=== PATIENT | male | born 1955 | race Caucasian/White ===

== ENCOUNTER 2018-07-25 09:01 | Emergency (ER) | payer BC ==
[2018-07-25] MEDS ORDERED: Sodium Chloride 0.9% 1,000 ML IV ONE (09:10)
[2018-07-25 09:13] VITALS: BP 160/90; PULSE 54
[2018-07-25] MEDS ORDERED: Ketorolac 30 MG/ML SDV IVPUSH ONE (09:22)
--- NOTE | 2018-07-25 09:27 | EDM.PDOC ---
ED HPI GENERAL MEDICAL PROBLEM - General Chief Complaint: Flank Pain Stated Complaint: KIDNEY PAIN Time Seen by Provider: 07/25/18 09:15 Source of Information: Reports: Patient History Limitations: Reports: No Limitations - History of Present Illness INITIAL COMMENTS - FREE TEXT/NARRATIVE: This 62 yo male patient reports to the ED with lower abdominal pain, painful urination and left lower back/flank pain. The patient reports he has had some discomfort with urination over the past month, but got much worse this morning. The patient reports diffuse abdominal throughout the night. The patient states his lower abdominal pain started to get bad this morning at 0600. By 0700, the patient started to have pain in his left lower back. The patient was seen in the [facility] yesterday for a possible rotator cuff injury and started on Prednisone. Onset: Today Duration: Constant, Getting Worse Location: Reports: Abdomen, Back (left flank) Quality: Reports: Ache, Dull Severity: Moderate Improves with: Reports: None Worsens with: Reports: None Context: Reports: Other Treatments [employer]CHNICIAN: Reports: Other Medication(s) (OCT cold medication) Left Flank Pain Score (Numeric/FACES): 9 - Related Data Allergies Allergy/AdvReac Type Severity Reaction Status Date / Time No Known Allergies Allergy Verified 07/25/18 09:11 Home Meds: Home Meds Escitalopram [Lexapro] 20 mg PO DAILY 07/25/18 [History] LORazepam 0.5 mg PO ASDIRECTED PRN 07/25/18 [History] Lisinopril 5 mg PO DAILY 07/25/18 [History] atorvaSTATin Calcium [Atorvastatin Calcium] 80 mg PO DAILY 07/25/18 [History] methylPREDNISolone [Methylprednisolone] 1 dose PO ASDIRECTED 07/25/18 [History] Past Medical History Cardiovascular History: Reports: High Cholesterol, Hypertension Respiratory History: Reports: Asthma Genitourinary History: Reports: Renal Calculus Musculoskeletal History: Reports: Other (See Below) Other Musculoskeletal History: possible left rotator cuff tear Psychiatric History: Reports: Anxiety Social & Family History - Tobacco Use Smoking Status *Q: Current Every Day Smoker Years of Tobacco use: 30 Packs/Tins Daily: 1 - Alcohol Use Days Per Week of Alcohol Use: 3 Number of Drinks Per Day: 10 Total Drinks Per Week: 30 - Recreational Drug Use Recreational Drug Use: No ED ROS GENERAL - Review of Systems Review Of Systems: ROS reveals no pertinent complaints other than HPI. ED EXAM, RENAL/ - Physical Exam Exam: See Below Exam Limited By: No Limitations General Appearance: Alert, WD/WN, Moderate Distress Eye Exam: Bilateral Eye: EOMI, Normal Inspection, PERRL Ears: Normal External Exam, Normal Canal, Hearing Grossly Normal, Normal TMs Nose: Normal Inspection, Normal Mucosa, No Blood Throat/Mouth: Normal Inspection, Normal Lips, Normal Teeth, Normal Gums, Normal Oropharynx, Normal Voice, No Airway Compromise Head: Atraumatic, Normocephalic Neck: Normal Inspection, Supple, Non-Tender, Full Range of Motion Respiratory/Chest: No Respiratory Distress, Lungs Clear, Normal Breath Sounds, No Accessory Muscle Use, Chest Non-Tender Cardiovascular: Normal Peripheral Pulses, Regular Rate, Rhythm, No Edema, No Gallop, No JVD, No Murmur, No Rub GI/Abdominal: Tender (lower abdomen) (Male) Exam: Deferred Rectal (Males) Exam: Deferred Back Exam: CVA Tenderness (L) Extremities: Normal Inspection, Normal Range of Motion, Non-Tender, Normal Capillary Refill, No Pedal Edema Neurological: Alert, Oriented, CN II-XII Intact, Normal Cognition, Normal Gait, Normal Reflexes, No Motor/Sensory Deficits Psychiatric: Normal Affect, Normal Mood Skin Exam: Warm, Dry, Intact, Normal Color, No Rash Lymphatic: No Adenopathy Course - Vital Signs Last Recorded V/S: Last Vital Signs Temp 36.4 C 07/25/18 09:12 Pulse 54 L 07/25/18 09:12 Resp 14 07/25/18 09:12 BP 160/90 H 07/25/18 09:12 Pulse Ox 100 07/25/18 09:12 - Orders/Labs/Meds Labs: Laboratory Tests 07/25/18 07/25/18 07/25/18 Range/Units 09:05 09:15 09:15 WBC 15.0 H (5.0-10.0) 10^3/uL RBC 4.26 L (4.6-6.2) 10^6/uL Hgb 14.2 (14.0-18.0) g/dL Hct 41.9 (40.0-54.0) % MCV 98.4 (80-100) fL MCH 33.3 (27.0-34.0) pg MCHC 33.9 (33.0-35.0) g/dL Plt Count 246 (150-450) 10^3/uL Neut % (Auto) 77.1 H (42.2-75.2) % Lymph % (Auto) 11.2 L (20.5-50.1) % Shannon % (Auto) 11.4 H (2-8) % Eos % (Auto) 0.2 L (1.0-3.0) % Baso % (Auto) 0.1 (0.0-1.0) % Sodium 133 L (135-145) mmol/L Potassium 3.6 (3.6-5.0) mmol/L Chloride 97 L (101-111) mmol/L Carbon Dioxide 25.0 (21.0-31.0) mmol/L Anion Gap 14.6 BUN 23 H (7-18) mg/dL Creatinine 1.0 (0.6-1.3) mg/dL Est Cr Clr Drug Dosing 88.78 mL/min Estimated GFR (MDRD) > 60 BUN/Creatinine Ratio 23.00 Glucose 118 H (74-105) mg/dL Calcium 9.3 (8.4-10.2) mg/dl Total Bilirubin 1.0 (0.2-1.0) mg/dL AST 23 (10-42) IU/L ALT 18 (10-60) IU/L Alkaline Phosphatase 56 (42-121) IU/L Total Protein 7.2 (6.7-8.2) g/dl Albumin 4.2 (3.2-5.5) g/dl Globulin 3.0 Albumin/Globulin Ratio 1.40 Urine Color Dark yellow (YELLOW) Urine Appearance Clear (CLEAR) Urine pH 6.0 (5.0-9.0) Ur Specific [place] 1.025 (1.005-1.030) Urine Protein 30 H (NEGATIVE) Urine Glucose (UA) Negative (NEGATIVE) Urine Ketones Trace H (NEGATIVE) Urine Occult Blood Moderate H (NEGATIVE) Urine Nitrite Negative (NEGATIVE) Urine Bilirubin Negative (NEGATIVE) Urine Urobilinogen 0.2 (0.2-1.0) mg/dL Ur Leukocyte Esterase Negative (NEGATIVE) Urine RBC 10-20 H /HPF Urine WBC 0-5 (0-5/HPF) /HPF Ur Epithelial Cells Few /HPF Urine Bacteria Few (0-FEW/HPF) /HPF Urine Mucus Many H /LPF Meds: Medications Discontinued Medications Generic Name Dose Route Start Last Admin Trade Name Dory PRN Reason Stop Dose Admin Sodium Chloride 1,000 mls @ 999 mls/hr 07/25/18 09:10 07/25/18 09:23 Normal Saline IV 07/25/18 10:10 999 mls/hr .BOLUS ONE Administration Ketorolac Tromethamine 30 mg 07/25/18 09:22 07/25/18 09:26 Toradol IVPUSH 07/25/18 09:23 30 mg ONETIME ONE Administration Tamsulosin HCl 0.4 mg 07/25/18 10:37 Flomax PO 07/25/18 10:38 ONETIME ONE Departure - Departure Time of Disposition: 10:44 Disposition: Home, Self-Care 01 Condition: Fair Clinical Impression: Kidney stone on left side - Discharge Information *PRESCRIPTION DRUG MONITORING PROGRAM REVIEWED*: Not Applicable *COPY OF PRESCRIPTION DRUG MONITORING REPORT IN PATIENT CHRISTIAN: Not Applicable Instructions: Kidney Stones, [id number] Forms: ED Department Discharge Care Plan Goals: The patient was advised of the examination, lab and CT results during the visit. The patient was given IV fluids, IV Toradol and an oral dose of Flomax while in the ED. The patient was discharged with a script for Toradol (10 mg) # 20 to take 1 by mouth every 6 hours with food and Flomax (0.4 mg) #10 to take 1 by mouth daily for 10 days. The patient should follow-up with his primary care facility in about 1 week. If the patient has any additional symptoms or concerns , the patient should either return to the emergency department or visit his primary care facility.
[2018-07-25 09:41] LABS: ANION GAP 14.6; CHLORIDE,CL 97 mmol/L (101-111); SODIUM,NA 133 mmol/L (135-145)
--- NOTE | 2018-07-25 10:08 | CT ---
Clinical History: 62-year-old hypertensive male smoker with hematuria and left flank pain. Scan technique: Volume acquisition of data emergency unenhanced CT scan of the abdomen and pelvis (kidneys/ureters/ bladder stone study) obtained while the patient was lying supine on the Siemens multislice scanner [place], [place]. All data archived in the PACS system for storage, reformatting axial/sagittal/coronal planes and study. Interpretation: Abnormal. 1. Asymmetric pyelocaliectasis (hydronephrosis) and ipsilateral left ureterectasis down to the ureteropelvic juncture, on the left. 2. *Solitary 3.5 x 5.5 mm oval calcification lodged in the distal left ureter i.e. ureterolith. 3. Atheromatous calcifications following course of ectatic but normal caliber aortoiliac vessels. Phlebolith left pelvis, laterally. 4. No nephrolithiasis and no sign of obstructive uropathy right kidney or collecting system on the right. Large heterogenous density dense prostate gland with central punctate calcifications. Seminal vesicles unremarkable. 5. Sigmoid diverticulosis. No pelvic or abdominal mass lesion, signs of retroperitoneal lymphadenopathy, mechanical bowel obstruction, ascites or free intraperitoneal air. Chronic L5-S1 disc disease. 6. Gallbladder, unenhanced liver, stomach, spleen, pancreas and adrenal glands unremarkable. 7. Large 14 x 19 mm diameter symmetrically calcified "stone" that appears lodged in the lateral wall of the rectum, pelvis on the left i.e. probable enterolith.
[2018-07-25] MEDS ORDERED: Tamsulosin 0.4 MG Cap.ER PO ONE (10:37)
== END 2018-07-25 10:58 | disposition home or self-care (01) ==
LOC: DL.ED 09:01
DX: N13.2 Hydronephrosis with renal and ureteral calculous obstruction (principal); J45.909 Unspecified asthma, uncomplicated; E78.00 Pure hypercholesterolemia, unspecified; I10 Essential (primary) hypertension; F17.210 Nicotine dependence, cigarettes, uncomplicated; Z79.899 Other long term (current) drug therapy
CPT/HCPCS: 36415; 74176; 80053; 81001; 85025; 96361; 96374; 99284; A9270; J1885; J7030

== ENCOUNTER 2019-10-16 20:47 | Emergency (ER) | payer BC ==
--- NOTE | 2019-10-16 21:03 | EDM.PDOC ---
ED HPI GENERAL MEDICAL PROBLEM - General Chief Complaint: Head Injury Stated Complaint: AMBULANCE Time Seen by Provider: 10/16/19 20:59 Source of Information: Reports: Patient, EMS History Limitations: Reports: No Limitations - History of Present Illness INITIAL COMMENTS - FREE TEXT/NARRATIVE: EMS concerned since PT's BP was low at the scene pt fell hitting head. pt states was blowing up a balloon and passed out. feels fine now, denies CP/SOB/LANGLEY. unable to recall event except was attempting to blow up a balloon - Related Data Allergies Allergy/AdvReac Type Severity Reaction Status Date / Time No Known Allergies Allergy Verified 10/16/19 21:21 Home Meds: Home Meds Escitalopram [Lexapro] 20 mg PO DAILY 07/25/18 [History] LORazepam 0.5 mg PO ASDIRECTED PRN 07/25/18 [History] Lisinopril 5 mg PO DAILY 07/25/18 [History] atorvaSTATin Calcium [Atorvastatin Calcium] 80 mg PO DAILY 07/25/18 [History] methylPREDNISolone [Methylprednisolone] 1 dose PO ASDIRECTED 07/25/18 [History] Past Medical History Cardiovascular History: Reports: High Cholesterol, Hypertension Respiratory History: Reports: Asthma Genitourinary History: Reports: Renal Calculus Musculoskeletal History: Reports: Other (See Below) Other Musculoskeletal History: possible left rotator cuff tear Psychiatric History: Reports: Anxiety ED ROS GENERAL - Review of Systems Review Of Systems: Comprehensive ROS is negative, except as noted in HPI. ED EXAM, HEAD INJURY - Physical Exam Exam: See Below Exam Limited By: No Limitations General Appearance: Alert, WD/WN, No Apparent Distress Head: Atraumatic. No: Solorzano's Sign, Raccoon Eyes Nexus Criteria: No: Posterior, Midline Cervical Tenderness, Evidence of Intoxication, Altered Level of Consciousness, Focal Neurological Deficit, Painful Distraction Injuries Eyes: Bilateral Eye: PERRL (ess ER @ 4mm) Ears: Hearing Grossly Normal Throat/Mouth: Normal Voice, No Airway Compromise Neck: Full Range of Motion, Normal Alignment Respiratory: No Respiratory Distress Cardiovascular: Regular Rate, Rhythm GI/Abdominal Exam: Soft, Non-Tender Neurologic: No Motor/Sensory Deficits, Alert, Normal Mood/Affect, Oriented x 3 Skin: Normal Color, Warm/Dry - Henry Coma Score Best Eye Response ([place]): (4) Open Spontaneously Best Verbal Response (Henry): (5) Oriented Best Motor Response (Henry): (6) Obeys Commands Ehnry Total: 15 Course - Vital Signs Last Recorded V/S: Last Vital Signs Temp 36.6 C 10/16/19 22:58 Pulse 67 10/16/19 22:58 Resp 17 10/16/19 22:58 BP 103/56 L 10/16/19 22:58 Pulse Ox 100 10/16/19 22:58 - Orders/Labs/Meds Orders: Active Orders 24 hr Category Date Time Status EKG 12 Lead [EKG Documentation Completion] [RC] STAT Care 10/16/19 20:44 Active Labs: Laboratory Tests 10/16/19 10/16/19 10/16/19 Range/Units 20:56 20:56 20:56 WBC 8.7 (5.0-10.0) 10^3/uL RBC 3.39 L (4.6-6.2) 10^6/uL Hgb 11.4 L D (14.0-18.0) g/dL Hct 32.9 L (40.0-54.0) % MCV 97.1 (80-100) fL MCH 33.6 (27.0-34.0) pg MCHC 34.7 (33.0-35.0) g/dL Plt Count 197 (150-450) 10^3/uL Neut % (Auto) 55.4 (42.2-75.2) % Lymph % (Auto) 29.4 (20.5-50.1) % Will % (Auto) 11.0 H (2-8) % Eos % (Auto) 3.4 H (1.0-3.0) % Baso % (Auto) 0.8 (0.0-1.0) % PT 9.3 (9.0-12.0) SEC INR 1.0 (0.9-1.2) APTT 24.4 (22.0-34.0) SEC Sodium 131 L (136-145) mmol/L Potassium 3.8 (3.5-5.1) mmol/L Chloride 95 L (98-107) mmol/L Carbon Dioxide 24 (21-32) mmol/L Anion Gap 15.8 H (7-13) mEq/L BUN 41 H (7-18) mg/dL Creatinine 2.33 H (0.70-1.30) mg/dL Est Cr Clr Drug Dosing TNP Estimated GFR (MDRD) 29 BUN/Creatinine Ratio 17.6 (No establ ref range) Glucose 89 (74-99) mg/dL Calcium 8.7 (8.5-10.1) mg/dL Total Bilirubin 0.4 (0.2-1.0) mg/dL AST 29 (15-37) U/L ALT 30 (16-63) U/L Alkaline Phosphatase 59 (46-116) U/L Troponin I < 0.017 (0.000-0.056) ng/mL Total Protein 6.9 (6.4-8.2) g/dL Albumin 3.7 (3.4-5.0) g/dL Globulin 3.2 Albumin/Globulin Ratio 1.2 Ethyl Alcohol (0) mg/dL 10/16/19 Range/Units 20:56 WBC (5.0-10.0) 10^3/uL RBC (4.6-6.2) 10^6/uL Hgb (14.0-18.0) g/dL Hct (40.0-54.0) % MCV (80-100) fL MCH (27.0-34.0) pg MCHC (33.0-35.0) g/dL Plt Count (150-450) 10^3/uL Neut % (Auto) (42.2-75.2) % Lymph % (Auto) (20.5-50.1) % Will % (Auto) (2-8) % Eos % (Auto) (1.0-3.0) % Baso % (Auto) (0.0-1.0) % PT (9.0-12.0) SEC INR (0.9-1.2) APTT (22.0-34.0) SEC Sodium (136-145) mmol/L Potassium (3.5-5.1) mmol/L Chloride (98-107) mmol/L Carbon Dioxide (21-32) mmol/L Anion Gap (7-13) mEq/L BUN (7-18) mg/dL Creatinine (0.70-1.30) mg/dL Est Cr Clr Drug Dosing Estimated GFR (MDRD) BUN/Creatinine Ratio (No establ ref range) Glucose (74-99) mg/dL Calcium (8.5-10.1) mg/dL Total Bilirubin (0.2-1.0) mg/dL AST (15-37) U/L ALT (16-63) U/L Alkaline Phosphatase (46-116) U/L Troponin I (0.000-0.056) ng/mL Total Protein (6.4-8.2) g/dL Albumin (3.4-5.0) g/dL Globulin Albumin/Globulin Ratio Ethyl Alcohol 205 (0) mg/dL Meds: Medications Discontinued Medications Generic Name Dose Route Start Last Admin Trade Name Freq PRN Reason Stop Dose Admin Multivitamins/Minerals 10 ml/ 1,011.2 mls @ 999 mls/hr 10/16/19 22:09 10/16/19 22:18 Folic Acid 1 mg/ Thiamine HCl IV 10/16/19 23:09 999 mls/hr 100 mg/ Lactated Ringer's ONETIME ONE Administration - Re-Assessments/Exams Free Text/Narrative Re-Assessment/Exam: 10/16/19 22:43 pt sleeping arousable no c/o, results discussed. Departure - Departure Time of Disposition: 23:02 Disposition: Home, Self-Care 01 Condition: Good Clinical Impression: Syncope Qualifiers: Syncope type: vasovagal syncope Qualified Code(s): R55 - Syncope and collapse - Discharge Information Instructions: Syncope, [id number] Forms: ED Department Discharge Additional Instructions: 1) rest and avoid vigorous activities next 48 hours 2) follow up at clinic - My Orders Last 24 Hours: My Active Orders 10/16/19 20:44 EKG 12 Lead [EKG Documentation Completion] [RC] STAT - Assessment/Plan Last 24 Hours: My Active Orders 10/16/19 20:44 EKG 12 Lead [EKG Documentation Completion] [RC] STAT
[2019-10-16 21:26] LABS: ANION GAP 15.8 mEq/L (7-13); CHLORIDE,CL 95 mmol/L (98-107); SODIUM,NA 131 mmol/L (136-145)
[2019-10-16 21:28] LABS: PTT,PARTIAL THROMBOPLSTIN TIME 24.4 SEC (22.0-34.0)
--- NOTE | 2019-10-16 21:33 | CR ---
PROCEDURE INFORMATION: Exam: XR Chest, 1 View Exam date and time: 10/16/2019 9:18 PM Age: 64 years old Clinical indication: Other: Fall; Additional info: Syncope TECHNIQUE: Imaging protocol: XR of the chest Views: 1 view. COMPARISON: No relevant prior studies available. FINDINGS: Lungs: Unremarkable. No consolidation. Pleural space: Unremarkable. No pleural effusion. No pneumothorax. Heart/Mediastinum: Unremarkable. No cardiomegaly. Bones/joints: Unremarkable. IMPRESSION: No acute findings.
--- NOTE | 2019-10-16 21:33 | CT ---
PROCEDURE INFORMATION: Exam: CT Head Without Contrast Exam date and time: 10/16/2019 9:20 PM Age: 64 years old Clinical indication: Other: Fall; Additional info: Head injury TECHNIQUE: Imaging protocol: Computed tomography of the head without contrast. Radiation optimization: All CT scans at this facility use at least one of these dose optimization techniques: automated exposure control; mA and/or kV adjustment per patient size (includes targeted exams where dose is matched to clinical indication); or iterative reconstruction. COMPARISON: No relevant prior studies available. FINDINGS: Brain: There is mild amount of scattered areas of hypoattenuation of the supratentorial white matter, most likely secondary to microvascular ischemic changes. No acute intracranial hemorrhage. Ventricles: Normal. No ventriculomegaly. Bones/joints: Unremarkable. No acute fracture. Sinuses: No air fluid levels. Mastoid air cells: Visualized mastoid air cells are well aerated. Soft tissues: Unremarkable. IMPRESSION: No acute intracranial process.
--- NOTE | 2019-10-16 21:39 | CT ---
PROCEDURE INFORMATION: Exam: CT Cervical Spine Without Contrast Exam date and time: 10/16/2019 9:20 PM Age: 64 years old Clinical indication: Other: Fall; Additional info: Head injury TECHNIQUE: Imaging protocol: Computed tomography images of the cervical spine without contrast. Radiation optimization: All CT scans at this facility use at least one of these dose optimization techniques: automated exposure control; mA and/or kV adjustment per patient size (includes targeted exams where dose is matched to clinical indication); or iterative reconstruction. COMPARISON: No relevant prior studies available. FINDINGS: Vertebrae: No acute fracture. Grade 1 anterolisthesis C4 on C5. No traumatic subluxation Discs/Spinal canal/Neural foramina: No spinal stenosis. Soft tissues: Unremarkable. Lungs: Lung apices are normal. IMPRESSION: No acute fracture or dislocation.
[2019-10-16] MEDS ORDERED: MVI, Adult with Vitamin K 10 ML, Folic Acid 1 MG, Thiamine 100 MG in Lactated Ringers 1... IV ONE ×4 (22:09)
[2019-10-16 22:59] VITALS: BP 103/56; PULSE 67
== END 2019-10-16 23:02 | disposition home or self-care (01) ==
LOC: DL.ED 20:47
DX: R55 Syncope and collapse (principal); I10 Essential (primary) hypertension; E78.00 Pure hypercholesterolemia, unspecified; F41.9 Anxiety disorder, unspecified; Y90.7 Blood alcohol level of 200-239 mg/100 ml
CPT/HCPCS: 36415; 70450; 71045; 72125; 80053; 80307; 84484; 85025; 85610; 85730; 93005; 96365; 99285; J3411; J7120; J3490

== ENCOUNTER 2023-11-01 13:17 | Emergency (ER) | payer BC ==
[2023-11-01 13:32] VITALS: PULSE 56
[2023-11-01 13:44] LABS: BASOPHILS PERCENT AUTO 0.4 % (0.0-1.0); EOSINOPHILS PERCENT AUTO 1.1 % (1.0-3.0); HEMATOCRIT 37.7 % (40.0-54.0); HEMOGLOBIN 12.8 g/dL (14.0-18.0); MEAN CORPUSCULAR HEMOGLOBIN 32.8 pg (27.0-34.0); MEAN CORPUSCULAR VOLUME 96.7 fL (80-100); MONOCYTES PERCENT AUTO 7.1 % (2-8); NEUTROPHILS PERCENT AUTO 80.4 % (42.2-75.2); PLATELET COUNT,PLT 228 10^3/uL (150-450); WHITE BLOOD CELL COUNT,WBC 10.2 10^3/uL (5.0-10.0)
[2023-11-01] MEDS: Ketorolac 30 MG/ML SDV IVPUSH ONE (13:51)
[2023-11-01] MEDS: Ondansetron 4 MG/2 ML SDV IVPUSH ONE (13:52)
[2023-11-01] MEDS: Sodium Chloride 0.9% 1,000 ML IV ONE (13:52)
[2023-11-01] MEDS: Sodium Chloride 0.9% 10 ML Syringe FLUSH PRN (13:52)
[2023-11-01 14:05] LABS: A/G RATIO 1.1; ALBUMIN 3.4 g/dL (3.4-5.0); BILIRUBIN TOTAL 0.6 mg/dL (0.2-1.0); BUN/CREATININE RATIO 20.3 (No establ ref range); C-REACTIVE PROTEIN 0.66 ng/dL (<=0.50); CALCIUM 9.8 mg/dL (8.5-10.1); CREATININE 1.18 mg/dL (0.70-1.30); EST CRCL DRUG DOSING (CG) 69.59 mL/min; MAGNESIUM 1.9 mg/dL (1.8-2.4); PROTEIN TOTAL,TP 6.6 g/dL (6.4-8.2)
[2023-11-01 14:24] LABS: BILIRUBIN,URINE NEGATIVE (NEGATIVE); COLOR,URINE DARK YELLOW (YELLOW); GLUCOSE,URINE NEGATIVE (NEGATIVE); KETONES,URINE NEGATIVE (NEGATIVE); LEUKOCYTE ESTERASE,URINE NEGATIVE (NEGATIVE); NITRITE,URINE NEGATIVE (NEGATIVE); OCCULT BLOOD,URINE MODERATE (NEGATIVE); PH,URINE 5.5 (5.0-9.0); PROTEIN,URINE TRACE (NEGATIVE); UROBILINOGEN,URINE 0.2 mg/dL (0.2-1.0)
[2023-11-01 14:25] LABS: APPEARANCE,URINE SLIGHTLY CLOUDY (CLEAR)
[2023-11-01 14:33] VITALS: BP 102/71
[2023-11-01 14:33] LABS: BACTERIA,URINE FEW /HPF (0-FEW/HPF); EPITHELIAL CELLS,URINE RARE /HPF (NOT SEEN); MUCUS,URINE MANY /LPF (NOT SEEN); WBC,URINE 0-5 /HPF (0-5/HPF)
[2023-11-01 14:34] LABS: RBC,URINE 40-50 /HPF (0-5)
== END 2023-11-01 14:44 | disposition home or self-care (01) ==
LOC: DL.ED 13:17
DX: R10.9 Unspecified abdominal pain (principal); I10 Essential (primary) hypertension; E78.00 Pure hypercholesterolemia, unspecified; J45.909 Unspecified asthma, uncomplicated; Z79.899 Other long term (current) drug therapy
CPT/HCPCS: 36415; 74176; 80053; 81001; 83735; 85025; 86140; 96374; 96375; 99284; 99284-25; J1885; J2405; J3490; J7030